=== PATIENT | male | born 1990 | race Caucasian/White ===

== ENCOUNTER 2017-07-28 16:40 | Emergency (ER) | payer BC ==
--- NOTE | 2017-07-28 18:53 | RAD ---
LUMBAR SPINE RADIOGRAPHS THREE VIEWS: HISTORY: New-onset low back pain. FINDINGS: There is no evidence of acute compression fracture or significant subluxation. Disk space heights a re preserved. IMPRESSION: No acute osseous abnormality of the lumbar spine. POS: [facility]
== END 2017-07-28 17:40 | disposition home or self-care (01) ==
LOC: SCSER 16:40
DX: M54.41 Lumbago with sciatica, right side (principal)
CPT/HCPCS: 72100; 96372; J2270

== ENCOUNTER 2017-07-30 08:43 | Emergency (ER) | payer BC ==
[2017-07-30] MEDS ORDERED: Ondansetron HCl/PF 4 MG/2 ML Vial ONE ×2 (09:11→09:37)
[2017-07-30 10:25] LABS: #Lymphocytes 1.4 thou/uL (1.20-3.40); #Monocytes 1.1 thou/uL (0.11-0.59); #Neutrophils 15.7 thou/uL (1.40-6.50); %Basophils 0.2 % (0.0-1.0); %Eosinophils 0.3 % (0.0-10.0); %Lymphocytes 7.5 % (21.0-51.0); %Monocytes 5.8 % (0.0-10.0); Hematocrit 46.7 % (42.0-52.0); Mean Platelet Volume 6.2 fL (7.4-10.4); Red Blood Cell (RBC) Count 5.23 mill/uL (4.70-6.10); White Blood Cell (WBC) Count 18.2 thou/uL (4.8-10.8)
[2017-07-30] MEDS ORDERED: Metoclopramide HCl 10 MG/2 ML VIAL ONE (10:35)
[2017-07-30 10:52] LABS: ALT (SGPT) 27 U/L (8-55); AST (SGOT) 16 U/L (5-34); Alkaline Phosphatase 67 U/L (40-150); Anion Gap 18 mmol/L (10-20); BUN (Urea Nitrogen) 18 mg/dL (8.9-20.6); Bilirubin, Total 0.5 mg/dL (0.2-1.2); Calc. Creatinine Clearance 0 mL/min (70-130); Calcium 9.7 mg/dL (7.8-10.44); Carbon Dioxide 19 mmol/L (22-29); Chloride 107 mmol/L (98-107); Estimated GFR-MDRD 83; Globulin 3.5 g/dL (2.4-3.5); Lipase 23 U/L (8-78); Protein, Total 8.1 g/dL (6.0-8.3)
--- NOTE | 2017-07-30 10:53 | CT ---
CT OF THE ABDOMEN AND PELVIS WITH IV CONTRAST: Date: 07/30/17 INDICATION: Vomiting. COMPARISON: Prior exam dated 04/07/17. FINDINGS: Lung bases are clear. The liver, spleen, pancreas, and adrenal glands are normal appearing. There is a small left renal cy st. No drainable fluid collection is evident. There is a normal appendix in the right lower quadrant. Th ere is a mild amount of retained stool within the distal colon and the rectum. No free fluid is evident. The bladder is partially decompressed. No pathologically enlarged lymph no raul are evident. There is no evidence of bowel obstruction. No definite acute osseous abnormality is evident. IMPRESSION: 1. No definite acute abnormality to explain the patient's vomiting and abdominal pain. 2. Normal appendix. 3. Mild amount of retained stool within the distal colon and rectum. 4. Small left renal cyst. POS: [facility]
[2017-07-30] MEDS ORDERED: Mag-Al 1200 mg/1200 mg/30 ML UDCUP ONE (11:37)
[2017-07-30] MEDS ORDERED: Lidocaine Viscous Sol 2% 15 ml UD Cup ONE (11:37)
[2017-07-30] MEDS ORDERED: ISOVUE-370 76%-LOCM 1 ML ONE (16:26)
== END 2017-07-30 12:36 | disposition home or self-care (01) ==
LOC: ERS 08:43
DX: R11.2 Nausea with vomiting, unspecified (principal); R10.10 Upper abdominal pain, unspecified; K27.9 Peptic ulcer, site unspecified, unspecified as acute or chronic, without hemorrhage or perforation
CPT/HCPCS: 36415; 74177; 80053; 83690; 85025; 96361; 96374; 96375; 96376; J1170; J2405; J2765